=== PATIENT | male | born 1980 | race Caucasian/White ===

== ENCOUNTER 2017-03-10 21:57 | Emergency (ER) | payer OTHER ==
[~2017-03-10] VITALS: Ht 182.9 cm; Wt 95.5 kg
[2017-03-10] MEDS ORDERED: METOPROLOL 1 MG/ML, 5ML ONE (22:19)
[2017-03-10] MEDS ORDERED: PROPOFOL 10 MG/ML, 20ML ONE (22:19)
[2017-03-10] MEDS ORDERED: SODIUM CHLORIDE FLUSH 10ML SYR IVF ONE (22:30)
[2017-03-10] MEDS ORDERED: PROPOFOL 10 MG/ML, 20ML IVPush ONE ×2 (22:30→23:30)
[2017-03-10] MEDS ORDERED: SODIUM CHLORIDE 0.9% 1,000ML IVBOLUS ONE (22:30)
[2017-03-10] MEDS ORDERED: METOPROLOL 1 MG/ML, 5ML IVPush PRN (22:30)
[2017-03-10 22:56] LABS: BLOOD UREA NITROGEN 17 mg/dL (7-18)
[2017-03-10 23:08] LABS: ASPARTATE AMINO TRANSFERASE 19 U/L (15-37)
[2017-03-10] MEDS ORDERED: POTASSIUM CHLORIDE 20 MEQ TAB.ER.PRT PO ONE (23:30)
[2017-03-10] MEDS ORDERED: POTASSIUM CHLORIDE 20 MEQ TAB.ER.PRT ONE (23:30)
[2017-03-11] VITALS: BP 135/86
== END 2017-03-11 00:09 | disposition home or self-care (01) ==
LOC: ED 23:45
DX: I48.91 Unspecified atrial fibrillation (principal); E87.6 Hypokalemia
CPT/HCPCS: 36415; 71010; 80053; 83735; 84436; 84443; 85025; 85610; 85730; 92960; 93005; 96361; 96374; 99152; 99153; 99285; J2704; J7030

== ENCOUNTER → 2017-05-01 | Outpatient (CLI) | payer OTHER | END | disposition home or self-care (01) | LOC: CFH 07:58 | PROVIDERS: ATTEND Internal Medicine Cardiovascular Disease | DX: I25.9 Chronic ischemic heart disease, unspecified (principal); I48.91 Unspecified atrial fibrillation; I34.0 Nonrheumatic mitral (valve) insufficiency | CPT/HCPCS: 78452; 93017; 93306; A9502 ==

== ENCOUNTER 2017-05-18 08:03 | Day surgery (SDC) | payer OTHER ==
[2017-05-17 10:32] VITALS: BP 152/90
[~2017-05-18] VITALS: Ht 182.9 cm; Wt 89.1 kg
[~2017-05-18 08:03] MED LIST: ESCI10TA10 PO; LANS30CA16 PO; METO50TA82 PO
[2017-05-18] MEDS ORDERED: MIDAZOLAM 1 MG/ML, 5ML ONE ×2 (08:27→09:30)
[2017-05-18] MEDS ORDERED: VERAPAMIL 2.5 MG/ML, 2ML ONE (08:27)
[2017-05-18] MEDS ORDERED: FENTANYL PF 100 MCG/2ML ONE (08:27)
[2017-05-18] MEDS ORDERED: LIDOCAINE 2%, 20ML ONE (08:28)
[2017-05-18] MEDS ORDERED: BIVALIRUDIN 250 MG ONE (08:28)
[2017-05-18] MEDS ORDERED: HEPARIN 1,000 UNITS/ML, 10ML ONE (08:28)
[2017-05-18] MEDS ORDERED: ACETAMINOPHEN 325 MG TABLET PO PRN (08:30)
[2017-05-18] MEDS ORDERED: ASPIRIN 325 MG TABLET EC PO ONE (08:30)
[2017-05-18] MEDS ORDERED: BISACODYL 5 MG EC TABLET PO PRN (08:30)
[2017-05-18] MEDS ORDERED: BISACODYL 10 MG SUPP PR PRN (08:30)
[2017-05-18] MEDS ORDERED: ZOLPIDEM 5MG TABLET PO PRN (08:30)
[2017-05-18] MEDS ORDERED: ONDANSETRON 2MG/ML, 2ML IVPush PRN (08:30)
[2017-05-18] MEDS ORDERED: DIPHENHYDRAMINE 50 MG/ML, 1ML ONE (09:22)
[2017-05-18] MEDS ORDERED: SODIUM CHLORIDE 0.9% 1,000 ML IV SCH (10:16)
== END 2017-05-18 12:45 ==
LOC: CACL 08:03
PROVIDERS: ATTEND Internal Medicine Cardiovascular Disease
DX: I48.91 Unspecified atrial fibrillation (principal); R07.89 Other chest pain; Z82.49 Family history of ischemic heart disease and other diseases of the circulatory system
CPT/HCPCS: 36415; 71020; 80053; 85025; 85610; 85730; 93005; 93458; 99156; 99157; C1894; J1200; J1644; J2250; J3010; J3490; Q9967; J0583